=== PATIENT | male | born 1945 | race Caucasian/White ===

== ENCOUNTER → 2017-07-04 | Outpatient (CLI) | payer OTHER ==
[~2017-07-04] VITALS: Ht 188 cm; Wt 109.0 kg
[~2017-07-04] MED LIST: ARTIFICIAL TEA3.5 G3 BOTH EYES; ARTIFICIAL TEAR15 M1 BOTH EYES; ASPIR 8181 M1 PO; BRILINTA90 MG PO; CALCITRATE + D1 EACH PO; CALCIUM 500 +1 EACH PO; CARVEDILOL12.5 MG PO; CENTRUM SILVER1 EAC3 PO; CLONAZEPAM0.5 MG PO; CO Q-1010 MG PO; CO Q-10200 MG PO; CYMBALTA60 MG PO; Claritin,Alavart PO; Coreg PO; EFFEXOR XR150 MG PO; FISH OIL CONC1 EACH PO; FLOMAX0.4 MG PO; FLONASE16 G1 BOTH NARES; FLUNISOLIDE 0.025% BOTH NARES; FLUNISOLIDE25 ML BOTH NARES; Flonase BOTH NARES; GLUCOS-CHOND 51 EACH PO; GLUCOSAMINE &1 EAC1 PO; HYTRIN1 MG PO; HYTRIN2 MG PO; Habitrol,Nicoderm CQ TD; KlonoPIN PO; LIPITOR40 MG PO; LIPITOR80 MG PO; LISINOPRIL10 MG PO; LYRICA100 MG PO; LYRICA50 MG PO; Levaquin PO; MELOXICAM15 MG PO; Medrol PO; Mobic PO; NITROSTAT0.4 MG SL; NON-ASPIRIN EX500 MG PO; Nitrostat,NitroQuick SL; PEPCID40 MG PO; PLAVIX75 MG PO; PROVENTIL HFA6.7 GM IH; PriLOSEC PO; Proscar PO; SILVADENE20 GM TP; SINGULAIR10 MG PO; SPIRIVA1 INHALATI IH; TRAMADOL HCL50 MG PO; TRAZODONE HCL100 MG PO; TRAZODONE HCL50 MG PO; ULTRAM ER300 MG PO; ULTRAM50 MG PO; VESICARE10 MG PO; VITAMIN E100 UNIT PO; VITAMIN E400 UNIT PO; Xopenex HFA Inhaler IH; ZYRTEC10 M2 PO; Zestril,Prinivil PO
== END | disposition home or self-care (01) ==
LOC: AMB 10:41
PROC: 0DBL8ZX Excision of Transverse Colon, Via Natural or Artificial Opening Endoscopic, Diagnostic (ICD-10-PCS; principal; 2017-07-04)
PROC: 0DB58ZX Excision of Esophagus, Via Natural or Artificial Opening Endoscopic, Diagnostic (ICD-10-PCS; 2017-07-04)
DX: D12.3 Benign neoplasm of transverse colon (principal); K57.30 Diverticulosis of large intestine without perforation or abscess without bleeding; K44.9 Diaphragmatic hernia without obstruction or gangrene; K21.0 Gastro-esophageal reflux disease with esophagitis; K22.2 Esophageal obstruction; D50.9 Iron deficiency anemia, unspecified; I10 Essential (primary) hypertension; J44.9 Chronic obstructive pulmonary disease, unspecified; Z87.891 Personal history of nicotine dependence; I25.2 Old myocardial infarction; Z86.73 Personal history of transient ischemic attack (TIA), and cerebral infarction without residual deficits
CPT/HCPCS: 88305

== ENCOUNTER 2018-06-03 14:18 | Observation (INO) | payer OTHER ==
[~2018-06-03] VITALS: Ht 188 cm; Wt 103.3 kg
[~2018-06-03 14:18] MED LIST changes: -CARVEDILOL12.5 MG PO; +CARVEDILOL25 MG PO; +DESYREL100 MG PO; -LISINOPRIL10 MG PO; +LISINOPRIL5 MG PO; -ZYRTEC10 M2 PO; +ZYRTEC10 M3 PO
[2018-06-03 15:12] LABS: HEMATOCRIT 31.3 % (38.0-50.0); HEMOGLOBIN 10.5 G/DL (12.5-16.6); MCH 31.5 PG (29.0-34.0); MCHC 33.5 G/DL (30.0-36.0); PLATELET COUNT 299 K/uL (156-360); RBC DIS.WIDTH-CV 13.2 % (11.8-14.6); RBC DIS.WIDTH-SD 45.6 % (39-53); RED BLOOD COUNT 3.33 M/uL (4.00-5.50); WHITE BLOOD COUNT 8.8 K/uL (4.1-10.2)
[2018-06-03 15:20] LABS: CHLORIDE 105 mEq/L (99-109); POTASSIUM 4.6 mEq/L (3.7-5.4); SODIUM 139 mEq/L (136-147)
[2018-06-03 15:22] LABS: GLUCOSE 120 mg/dL (70-99)
[2018-06-03 15:26] LABS: CREATININE 1.1 mg/dL (0.6-1.3); GFR ESTIMATE (CALCULATED) > 59 mL/min/ (58.99-99999)
[2018-06-03 15:27] LABS: UREA NITROGEN (BUN) 20 mg/dL (9-23)
[2018-06-03 15:34] LABS: TROP-I INTERPRETATION NEGATIVE; TROPONIN-I < 0.01 ng/mL (0.0-0.30)
[2018-06-03] MEDS ORDERED: FLONASE16 G1 BOTH NARES (16:49)
[2018-06-03] MEDS ORDERED: LIPITOR80 MG PO (16:50)
[2018-06-03] MEDS ORDERED: XYZAL5 MG PO (16:50)
[2018-06-03 18:09] VITALS: BP 135/63
[2018-06-03 20:28] VITALS: BP 111/61
[2018-06-03 22:20] LABS: TROP-I INTERPRETATION NEGATIVE; TROPONIN-I 0.01 ng/mL (0.0-0.30)
[2018-06-04] VITALS: BP 104/51
[2018-06-04 04:00] VITALS: BP 119/62
[2018-06-04 04:27] LABS: HEMATOCRIT 29.4 % (38.0-50.0); HEMOGLOBIN 9.8 G/DL (12.5-16.6); MCH 31.2 PG (29.0-34.0); MCHC 33.3 G/DL (30.0-36.0); MCV 93.6 FL (86-99); PLATELET COUNT 255 K/uL (156-360); RBC DIS.WIDTH-CV 13.4 % (11.8-14.6); RBC DIS.WIDTH-SD 45.7 % (39-53); RED BLOOD COUNT 3.14 M/uL (4.00-5.50); WHITE BLOOD COUNT 8.2 K/uL (4.1-10.2)
[2018-06-04 04:36] LABS: ALBUMIN 3.7 g/dL (3.2-4.8); CHLORIDE 107 mEq/L (99-109); POTASSIUM 4.4 mEq/L (3.7-5.4); SODIUM 140 mEq/L (136-147)
[2018-06-04 04:38] LABS: GLUCOSE 101 mg/dL (70-99)
[2018-06-04 04:39] LABS: TOTAL PROTEIN 5.8 g/dL (6.4-8.3)
[2018-06-04 04:40] LABS: TOTAL BILIRUBIN 0.2 mg/dL (0.0-1.0)
[2018-06-04 04:42] LABS: ALKALINE PHOSPHATASE 47 IU/L (3-129); CREATININE 0.9 mg/dL (0.6-1.3); GFR ESTIMATE (CALCULATED) > 59 mL/min/ (58.99-99999)
[2018-06-04 04:43] LABS: UREA NITROGEN (BUN) 20 mg/dL (9-23)
[2018-06-04 04:44] LABS: AST (GOT) 10 IU/L (2-34)
[2018-06-04 04:45] LABS: ALT (GPT) 9 IU/L (3-49)
[2018-06-04 04:51] LABS: TROP-I INTERPRETATION NEGATIVE; TROPONIN-I 0.01 ng/mL (0.0-0.30)
[2018-06-04 07:34] VITALS: BP 119/65
[2018-06-04 11:23] VITALS: BP 131/53
[2018-06-04] MEDS ORDERED: COREG6.25 M1 PO (12:56)
== END 2018-06-04 13:47 | disposition home or self-care (01) ==
LOC: EME 14:18 → 4SOUTH 16:39 → EDOF 16:39 → ENRESERV 16:48 → 4SOUTH 17:55
PROVIDERS: Internal Medicine
DX: R07.9 Chest pain, unspecified (principal); I25.10 Atherosclerotic heart disease of native coronary artery without angina pectoris; Z95.5 Presence of coronary angioplasty implant and graft; D64.9 Anemia, unspecified; I10 Essential (primary) hypertension; E78.5 Hyperlipidemia, unspecified; J44.9 Chronic obstructive pulmonary disease, unspecified; I45.10 Unspecified right bundle-branch block; M25.519 Pain in unspecified shoulder; K21.9 Gastro-esophageal reflux disease without esophagitis; F43.10 Post-traumatic stress disorder, unspecified; G89.29 Other chronic pain; Z87.891 Personal history of nicotine dependence; R00.1 Bradycardia, unspecified; R53.1 Weakness; Z82.49 Family history of ischemic heart disease and other diseases of the circulatory system; Z87.19 Personal history of other diseases of the digestive system
CPT/HCPCS: 71046; 80048; 80053; 84484; 85027; 93005; 94640; 94799; 99281; 99284; G0378; J1650